=== PATIENT | female | born 1975 | race Caucasian/White ===

== ENCOUNTER 2024-04-05 08:25 | Outpatient (CLI) | payer BC | END 2024-04-05 08:26 | disposition home or self-care (01) | LOC: CSHMAMMO 08:25 | PROVIDERS: ATTEND Family Medicine | DX: Z12.31 Encounter for screening mammogram for malignant neoplasm of breast (principal); R92.8 Other abnormal and inconclusive findings on diagnostic imaging of breast | CPT/HCPCS: 77063; 77067 ==

== ENCOUNTER 2024-11-06 08:13 | Outpatient (CLI) | payer BC | END 2024-11-06 08:14 | disposition home or self-care (01) | LOC: CSHMAMMO 08:13 | PROVIDERS: ATTEND Student in an Organized Health Care Education/Training Program | DX: Z87.898 Personal history of other specified conditions (principal) | CPT/HCPCS: G0279 ==